=== PATIENT | male | born 1985 | race African-American/Black ===

== ENCOUNTER 2020-09-27 20:23 | Emergency (ER) | payer MEDICAID ==
[~2020-09-27] VITALS: Ht 165.1 cm; Wt 66.0 kg
[2020-09-27 21:46] VITALS: BP 107/68
[2020-09-28] MEDS ORDERED: BACITRACIN ZINC OINT UDPKT TOP ONE (02:00)
== END 2020-09-28 02:40 | disposition home or self-care (01) ==
LOC: ER 20:23
DX: L03.113 Cellulitis of right upper limb (principal)
CPT/HCPCS: 73130; 99283